=== PATIENT | female | born 1975 | race Caucasian/White ===

== ENCOUNTER → 2021-03-28 14:51 | Outpatient (CLI) | payer BC, SELFPAY | PROVIDERS: PCP Family Medicine; Visit Provider Nurse Practitioner | DX: Z20.822 Contact with and (suspected) exposure to COVID-19 (principal) | CPT/HCPCS: C9803; U0003; U0005 ==

== ENCOUNTER → 2021-12-06 14:26 | Outpatient (CLI) | payer BC, OTHER, SELFPAY | PROVIDERS: PCP Specialist; Visit Provider Internal Medicine Adolescent Medicine | DX: G47.30 Sleep apnea, unspecified (principal); R06.83 Snoring | CPT/HCPCS: G0399 ==

== ENCOUNTER → 2022-01-26 07:55 | Outpatient (CLI) | payer BC, SELFPAY ==
--- NOTE | 2022-01-26 07:55 | MM_ITS ---
PROCEDURE INFORMATION: Exam: MG Bilateral Screening 3D Mammography Exam date and time: 01/26/2022 7:56 AM Age: 46 years old Clinical indication: Screening mammogram TECHNIQUE: Imaging protocol: Bilateral Screening tomosynthesis and 2D mammography including computer-aided detection (CAD) when performed. COMPARISON: 1. MG MAMMO POST CLIP PLACEMENT RIGHT 09/13/2017 10:41 AM 2. MG MAMMO DIAGNOSTIC DIGITAL TOMOSYNTHESIS BILATERAL W CAD 09/13/2017 8:33 AM 3. US GUIDED CYST ASPIRATION BREAST 09/13/2017 10:22 AM 4. US BREAST BILATERAL LIMITED 09/13/2017 9:41 AM FINDINGS: MAMMOGRAPHY: Breast composition: There are scattered areas of fibroglandular density. Mass: Stable benign-appearing nodules are present in the left breast. No new or morphologically suspicious nodule has developed to suggest malignancy. Architectural distortion: No new or suspicious architectural distortion. Calcifications: No new or suspicious calcifications are present Asymmetric density: No new or suspicious asymmetric density is present Skin thickening: None. Axillary adenopathy: None. IMPRESSION: No mammographic evidence of malignancy. Recommend annual screening mammography unless otherwise clinically indicated. ASSESSMENT: BI-RADS category 2: Benign
== END ==
PROVIDERS: PCP Nurse Practitioner Family; Visit Provider Nurse Practitioner Obstetrics & Gynecology
DX: Z12.31 Encounter for screening mammogram for malignant neoplasm of breast (principal)
CPT/HCPCS: 77063; 77067

== ENCOUNTER → 2022-01-26 10:22 | Outpatient (CLI) | payer BC, SELFPAY ==
[2022-01-27 08:17] LABS: Estradiol 98.1 pg/mL (.); FSH 6.8 mIU/mL (.); LH 9.2 mIU/mL (.)
== END ==
PROVIDERS: PCP Family Medicine; Visit Provider Nurse Practitioner Obstetrics & Gynecology
DX: N95.1 Menopausal and female climacteric states (principal)
CPT/HCPCS: 36415; 82670; 83001; 83002

== ENCOUNTER → 2023-01-29 15:18 | Outpatient (CLI) | payer BC, SELFPAY ==
--- NOTE | 2023-01-29 15:21 | MM_ITS ---
PROCEDURE INFORMATION: Exam: MG Bilateral Screening 3D Mammography Exam date and time: 01/29/2023 3:29 PM Age: 47 years old Clinical indication: Screening. No family history of breast cancer. History of prior cyst aspiration. TECHNIQUE: Imaging protocol: Bilateral Screening tomosynthesis and 2D mammography including computer-aided detection (CAD) when performed. COMPARISON: 1. MG MM DIG SCREENING MAMM BI W/CAD 01/26/2022 7:56 AM 2. MG MAMMO POST CLIP PLACEMENT RIGHT 09/13/2017 10:41 AM 3. MG MAMMO DIAGNOSTIC DIGITAL TOMOSYNTHESIS BILATERAL W CAD 09/13/2017 8:33 AM 4. US GUIDED CYST ASPIRATION BREAST 09/13/2017 10:22 AM FINDINGS: MAMMOGRAPHY: Breast composition: There are scattered areas of fibroglandular density. Mass: Similar pattern of scattered bilateral oval masses, compatible with waxing and waning cysts, going back to 09/13/2017. No dominant suspicious mass. Architectural distortion: None. Calcifications: No suspicious calcifications. Asymmetric density: None. Skin thickening: None. Axillary adenopathy: None. IMPRESSION: No mammographic evidence of malignancy. Annual screening is recommended unless otherwise clinically indicated. ASSESSMENT: BI-RADS Category 2: Benign
== END ==
PROVIDERS: PCP Family Medicine; Visit Provider Nurse Practitioner Obstetrics & Gynecology
DX: Z12.31 Encounter for screening mammogram for malignant neoplasm of breast (principal)
CPT/HCPCS: 77063; 77067

== ENCOUNTER 2023-07-01 08:19 | Day surgery (SDC) | payer BC, SELFPAY ==
[2023-06-24 13:55] VITALS: BMI 28.5
[2023-07-01] MEDS: LACTATED RINGERS 1000ML 1,000 ML 25 ML IV (09:13)
[2023-07-01 09:17] VITALS: BP 120/77; PULSE 80; RESP 18; TEMP 36.5; O2SAT 99
[2023-07-01 09:21] LABS: Urine Pregnancy, HCG Qual. Negative (Negative)
--- NOTE | 2023-07-01 09:46 | P.PNANES_ITS ---
[facility] Disclaimer: The information contained in this section may have been updated after the patient was seen, as this information can be updated by other users. Medical History Anxiety Chronic nasal congestion Depression Excessive daytime sleepiness ESS:16 Thyroid disease Surgical History History of tonsillectomy Family History Other Coronary artery disease Depression Diabetes Hypertension Obesity Sleep apnea Social History Smoking Status: Never smoker second hand exposure: No alcohol intake: current counseling given: No substance use type: denies use current occupational status: employed and other Travel in the last 8 weeks: None adopted: No household members: children housing: house lives independently: Yes marital status: number of children: 2 number of grandchildren: 0 education level: college service: No caffeine: Yes [facility] Anesthesia Checklist Patient Identification Patient Identification: Verbal (Name & ) Structural Data Admitted From: Home Planned Operative Procedure/s: colonoscopy Consent for Planned Operative Procedure(s) Verified: Yes Airway Assessment Mallampati Score:: Class II C-Spine Mobility Assessed: Yes TMJ Mobility Assessed: Yes Dentition: Good Dentition Neurological Assessment Level of Consciousness: Awake, Alert and Appropriate Anesthesia Plan Anesthesia Risk discussed: Yes Anesthesia Plan: Verified ASA Class: II Anesthesia Type: MAC
[2023-07-01 09:57] VITALS: O2SAT 100
--- NOTE | 2023-07-01 10:17 | HMH.SCOPE ---
Procedure: Date: 07/01/23 Patient Date of :: 1975 Procedure Performed:: Screening colonoscopy with polypectomy Indications:: Colon cancer screening Performing Provider:: Rich Griffith MD Referring Provider:: Pinky Reid MD Sedation:: Propofol Procedure:: After placing the patient in the left lateral decubitus position, the colonoscopy was gently inserted into the rectum and under direct visualization advanced to the cecum which was identified by transillumination in the right lower quadrant, identification of the ileocecal valve, appendiceal orifice, and cecal strap. Color, texture, mucosa, and anatomy of the colon were carefully examined with the scope. Findings:: Anal canal: normal Rectum: normal Sigmoid colon: normal without polyps or inflammatory changes, visualization impaired due to poor prep quality Descending colon: normal without polyps or inflammatory changes, much liquid retained stool Splenic flexure: normal Transverse colon: normal without polyps or inflammatory changes, much liquid retained stool Hepatic flexure: normal Ascending colon: normal, .75 cm adenomatous polyp identified and removed with hot snare Cecum: normal Terminal ileum: not visualized Impression: Polyp, ascending colon Overall poor prep quality Specimens:: Polyp Recommendations:: Follow up examination in about THREE years or so, sooner if clinically indicated in view of findings of polyps. Complications:: None Estimated blood obtained (mL): 0 Colonoscopy Component Colonoscopy Component Was a colonoscopy performed during today's procedure?: Yes Recommended follow up colonoscopy of at least 10 years?: No If no, follow up colonoscopy recommended in ___ years?: THREE Reason for not recommending >/= 10 yr follow-up interval?: Polyp
[2023-07-01 10:19] VITALS: BP 90/51; PULSE 84; RESP 18; TEMP 36.3; O2SAT 94
[2023-07-01 10:29] VITALS: BP 92/55; PULSE 80; RESP 16; O2SAT 97
[2023-07-01 10:39] VITALS: BP 100/62; PULSE 84; RESP 16; O2SAT 96
[2023-07-01 10:49] VITALS: BP 102/69; PULSE 75; RESP 16; TEMP 36.6; O2SAT 98
== END 2023-07-01 10:50 | disposition home or self-care (01) ==
PROVIDERS: PCP Internal Medicine Adolescent Medicine; Visit Provider Internal Medicine Gastroenterology
PROC: (CPT 45385; principal; 2023-07-01 10:00)
DX: Z12.11 Encounter for screening for malignant neoplasm of colon (principal); Z91.199 Patient's noncompliance with other medical treatment and regimen due to unspecified reason; D12.2 Benign neoplasm of ascending colon
CPT/HCPCS: 45385; 81025

== ENCOUNTER 2024-10-31 10:52 | Outpatient (CLI) | payer BC, SELFPAY ==
--- OUTSIDE RECORDS SUMMARY | 2024-10-31 10:56 | XMS_ITS | Clinical Summary ---
Author Organization [facility] Address [address] [place] [address] Care Team Providers Care Intelligence Chief Name Role Phone Brayan Reid MD Primary Care Provider + [phone] Allergies Active Allergy Reactions Criticality Noted Date Comments Levofloxacin Unknown - Patient st ates they do not know rxn details Low 08/29/2020 Nitrofurantoin Unknown - Patient st ates they do not know rxn details Low 08/29/2020 Medications Ventolin HFA 108 (90 Base) MCG/ACT inhaler 07/09/2020 Act darrian levonorgestrel (Mirena, 52 MG,) 20 MCG/24HR IUD 08/29/2020 Act darrian montelukast (Singulair) 10 MG tablet 07/09/2020 Active [employer] Thyroid 90 MG tablet 01/10/2021 Active omeprazole (PriLOSEC) [address] capsule Take by mouth 1 (one) time each day. 11/20/2021 Active Dulera 100-5 MCG/ACT inhaler Inhale 2 puffs 2 (two) times a day. 11/20/2021 Active SEMAGLUTIDE,0.25 OR 0.5MG/DOS, SC Inject under the skin. Active cyclobenzaprine (Flexeril) 10 MG tabletIndication s:Fibromyalgia TAKE 0.5 TABLET BY MOUTH AT NIGHT NEEDED FOR MUSCLE SPASMS 30 tablet 3 08/06/2023 Active Active Problems No known active problems Immunizations Immunization Administration Dates Next Due Hep B, adult 10/16/2002,05/16/2002,04/11/2002 PPD Skin Test (TB Skin Test) 04/02/2003,04/11/20 02,03/27/2002 Family History Medical History Relation Name Comments Diabetes Father Dima Kelsey Autoimmune disease Maternal Grandmother Gregg Flores ll Hearing loss Maternal Grandmother Gregg Browerrill Kidney disease Maternal Grandmother Gregg Browerrill Arthritis Mother Anabelle Kelsey Autoimmune disease Mother Anabelle Kelsey Depression Mother Anabelle Kelsey Kidney disease Mother Anabelle Kelsey Obesity Mother Anabelle Kelsey Rheumatologic disease Mother Anabelle Kelsey Cancer Paternal Grandmother Gissel Kelsey Relation Name Status Comments Father Dima Kelsey Maternal Grandmother Gregg Al Mother Anabelle Kelsey Paternal Grandmother Gissel Kelsey Social History Tobacco Use Types Packs/Day Years Used Date Smoking Tobacco: Never Smokeless Tobacco: Never Tobacco Cessation:Counseling Given: Not Answered PHQ-2 Answer Date Recorded Patient Health Questionnaire-2 Score 0 09/08/2022 PHQ-2A Answer Date Recorded Patient Health Questionnaire-2 Score 0 09/08/2022 Comments Unknown Sex and Gender Information Value Date Recorded Sex Assigned at Female 03/11/2022 5:45 AM EST Legal Sex Female 8:00 PM EDT Gender Identity Female 03/11/2022 5:45 AM EST Sexual Orientation Straight 03/11/2022 5: 45 AM EST Last Filed Vital Signs Vital Sign Reading Time Taken Comments Blood Pressure 113/77 09/08/2022 9:01 AM EDT Pulse 78 09/08/2022 9:01 AM EDT Temperature 36.7 C (98 F) 09/08/2022 9:01 AM EDT Respiratory Rate - - Oxygen Saturation 97% 09/08/2022 9:01 AM EDT Inhaled Oxygen Concentration - - Weight 98.7 kg (217 lb 9.5 oz) 09/08/2022 9:01 A M EDT Height 172.7 cm (5' 8 ) 09/08/2022 9:01 AM EDT Body Mass Index 33.09 09/08/2022 9:01 AM EDT Plan of Treatment Health Maintenance Due Date Last Done Comments [facility]-HIV Screening 1975 [facility]-/Child/Adol SDOH Screenings 1975 [facility]- SDOH Screenings 1994 [facility]-Adult SDOH Screenings 1994 [facility]-Pap Smear 1997 [facility]-Cervical Cancer Screening 2006 [facility]-HPV/Cotest 2006 CT Colonography 2021 Colonoscopy 2021 FIT-DNA 2021 FIT 2021 FOBT 2021 Sigmoidoscopy 2021 [facility]-Colorectal Cancer Screening 2021 [facility]-Depression Screening 09/09/2023 09/08/2022 [id number] Vaccine ( season) 2023 02/19/2022, 11/21/2021, 05/09/2021, Additional history exists [facility]-Influenza Vaccine (#1) 12/25/202402/19, 01/02/2020, 01/28/2018 [facility]-Zoster Vaccines (1 of 2) 2026 [facility]-DTaP,Tdap,and Td Vaccines (2 - Td or Tdap) 01/01/2030 01/02/2020 [facility]-Hepatitis B Vaccines Completed 003, 05/16/2002, 04/11/2002 [facility]-Pneumococcal Vaccine: Pediatrics (0 to 5 Years) and At-Risk Patients (6 to 49 Years) Aged Out 01/28/2018 No longer eligible based on patient's age to complete this topic [facility]-Hepatitis C Screening Completed 09/08/2022 [facility]-Obesity Intervention Completed 09/08/2022, 02/24 HPV Vaccines Aged Out No longer eligi ble based on patient's age to complete this topic [facility]-HIB Vaccines Aged Out No longer e ligible based on patient's age to complete this topic [facility]-Hepatitis A Vaccines Aged Out No longer eligible based on patient's age to complete this topic [facility]-IPV Vaccines Aged Out No longer e ligible based on patient's age to complete this topic [facility]-Rotavirus Vaccines Aged Out No lo nger eligible based on patient's age to complete this topic Procedures Procedure Name Priority Date/Time Associated Diagnosis Comments ACUTE HEPATITIS PANEL Routine 09/08/2022 9:58 AM EDT Bilateral hand pain from Last 3 Months or Most Recently Relevant to Health Maintenance Results * Acute Hepatitis Panel (09/08/2022 9:58 AM EDT) Hepatitis B Surf Antigen Negative Negative 09/08/2022 1:22 PM EDT [facility] Hepatitis C Antibody Negative Negative 09/08/2022 1:22 PM EDT [facility] Hepatitis A Antibody IgM Negative Negative 09/08/2022 1:22 PM EDT [facility] Hepatitis B Core Antibody IgM Negative Negative 09/08/2022 1:22 PM EDT [facility] Blood Venous blood specimen / Unknown Venipuncture / Unknown 09/08/2022 9:58 AM EDT 09/08/2022 9:58 AM EDT [facility] BLOOD ORDERABLES Final Result [facility] [address] [place] [address] from Last 3 Months or Most Recently Relevant to Health Maintenance [facility] Care Teams Intelligence Chief Relationship Specialty Start Date End Date Bryaan Reid MD [address] [place] [id number] PCP - General Internal Medicine 03/11/22
[2024-10-31 11:21] LABS: Hematocrit 36.1 % (37.0-47.0); Hemoglobin 12.5 g/dL (12.2-16.2); Immature Granulocytes % 0.2 %; Mean Corpuscular HGB Conc 34.6 g/dL (31.8-35.4); Mean Corpuscular Hemoglobin 31.9 pg (27.0-31.2); Mean Corpuscular Volume 92.1 fl (81-99); Nucleated Red Blood Cells % 0 %; Platelet Count 255 K/mm3 (142-424); Red Blood Count 3.92 M/mm3 (4.20-5.40); Red Cell Distribution Width-SD 43.9 fL; White Blood Count 5.3 K/mm3 (4.8-10.8)
[2024-10-31 12:10] LABS: Alanine Aminotransferase 16 U/L (12-78); Albumin Level 4.0 g/dl (3.5-5.0); Albumin/Globulin Ratio 1.7 (1.1-1.8); Alkaline Phosphatase 54 U/L (38-126); Anion Gap 13.0 mEq/L (5-15); Aspartate Amino Transferase 20 U/L (14-36); Bilirubin,Total 0.6 mg/dl (0.2-1.3); Blood Urea Nitrogen 7 mg/dl (7-17); Calcium 9.0 mg/dl (8.4-10.2); Carbon Dioxide 24 mmol/L (22.0-30.0); Chloride 106 mmol/L (98-107); Cholesterol 159 mg/dl (140-200); Creatinine,Serum 0.60 mg/dl (0.52-1.04); Estimated Glomerular Filt Rate 107 ml/min (>60); GFR (African American) 129 ML/MIN (>60); Globulin 2.4 g/dL (1.3-3.2); Glucose 80 mg/dl (74-100); HDL Cholesterol 43 mg/dl (40-60); Potassium 4.0 mmoL/L (3.5-5.1); Sodium 139 mmol/L (136-145); Total Protein,Serum 6.4 g/dl (6.3-8.2); Triglycerides 82 mg/dl (30-150)
[2024-10-31 12:26] LABS: 25-OH Vitamin D, Total 16.2 ng/mL (30-100)
[2024-10-31 12:27] LABS: Free Thyroxine Index 2.9 ug/dL (5.93-13.13); T4 (Thyroxine) 8.8 ug/dl (5.53-11.0); Triiodothryronine (T3) Uptake 33 % (23.5-40.5)
[2024-10-31 12:41] LABS: Thyroid Stimulating Hormone 2.75 uIU/mL (0.465-4.68)
== END 2024-10-31 23:59 | disposition home or self-care (01) ==
LOC: LAB 10:54
PROVIDERS: PCP Pediatrics; Visit Provider Nurse Practitioner Obstetrics & Gynecology
DX: Z01.419 Encounter for gynecological examination (general) (routine) without abnormal findings (principal); N39.0 Urinary tract infection, site not specified; R53.83 Other fatigue
CPT/HCPCS: 36415; 80053; 80061; 82306; 84436; 84443; 84479; 85025